=== PATIENT | female | born 1995 | race Caucasian/White ===

== ENCOUNTER 2017-08-26 11:33 | Emergency (ER) | payer MEDICAID ==
[~2017-08-26] VITALS: Ht 152.4 cm; Wt 92.6 kg
[2017-08-26 11:51] VITALS: Ht 152.4 cm; Wt 92.6 kg
[2017-08-26 13:04] LABS: PLATELET COUNT 268 x10^3mcL (130-400)
[2017-08-26 13:07] LABS: BASOPHIL % 0 % (0-2)
[2017-08-26 13:24] LABS: ALBUMIN 3.8 g/dL (3.4-5.0); ALKALINE PHOSPHATASE 84 U/L (46-116); ALT/SGPT 56 U/L (14-59); AST/SGOT 32 U/L (15-37); BILIRUBIN TOTAL 0.4 mg/dL (0.20-1.00); CALCIUM 9.1 mg/dL (8.5-10.1); CARBON DIOXIDE 27.5 mmol/L (21-32); CHLORIDE SERUM 104 mmol/L (98-107); CREATININE SERUM 0.7 mg/dL (0.6-1.0); GFR1 > 60 mL/min; GLUCOSE SERUM 108 mg/dL (74-106); LIPASE 120 IU/L (73-393); POTASSIUM SERUM 4.4 mmol/L (3.5-5.1); SODIUM SERUM 139 mmol/L (136-145); TOTAL PROTEIN, SERUM 8.2 g/dL (6.4-8.2)
[2017-08-26 14:47] VITALS: BP 130/75
== END 2017-08-26 14:47 | disposition home or self-care (01) ==
LOC: ED 11:33
PROVIDERS: Emergency Medicine
DX: K52.9 Noninfective gastroenteritis and colitis, unspecified (principal)
CPT/HCPCS: 36415; Q0162

== ENCOUNTER 2019-04-26 20:16 | Emergency (ER) | payer SELFPAY ==
[~2019-04-26] VITALS: Ht 152.4 cm; Wt 97.1 kg
[2019-04-26 20:50] VITALS: Ht 152.4 cm; Wt 97.1 kg
[2019-04-26 22:37] LABS: BASOPHIL % 0.1 % (0-2); CARBON DIOXIDE 23.8 mmol/L (21-32); CHLORIDE SERUM 110 mmol/L (98-107); CREATININE SERUM 0.7 mg/dL (0.6-1.0); GFR1 > 60 mL/min; GLUCOSE SERUM 94 mg/dL (74-106); PLATELET COUNT 262 x10^3mcL (130-400); POTASSIUM SERUM 3.7 mmol/L (3.5-5.1); SODIUM SERUM 145 mmol/L (136-145)
[2019-04-26 22:38] LABS: LIPASE 142 IU/L (73-393)
[2019-04-26 22:44] LABS: RED CELL DISTRIBUTION WIDTH 15.7 % (11.5-14.5)
[2019-04-26 23:36] VITALS: BP 106/55
== END 2019-04-26 23:36 | disposition home or self-care (01) ==
LOC: ED 20:16
PROVIDERS: Emergency Medicine
DX: K52.9 Noninfective gastroenteritis and colitis, unspecified (principal)
CPT/HCPCS: 36415; Q0162

== ENCOUNTER 2019-12-11 00:09 | Emergency (ER) | payer SELFPAY ==
[~2019-12-11] VITALS: Ht 180.3 cm; Wt 95.7 kg
[2019-12-11 00:13] VITALS: Ht 180.3 cm; Wt 95.7 kg
[2019-12-11 03:26] VITALS: BP 148/78
== END 2019-12-11 03:26 | disposition home or self-care (01) ==
LOC: ED 00:09
DX: F16.10 Hallucinogen abuse, uncomplicated (principal); G47.00 Insomnia, unspecified